=== PATIENT | female | born 1990 | race African-American/Black ===

== ENCOUNTER 2016-06-11 14:25 | Emergency (ER) | payer SELFPAY ==
[2016-06-11 14:25] VITALS: BMI 19.4
[2016-06-11 15:06] VITALS: BP 116/55; PULSE 96; TEMP 98.7
[2016-06-11] MEDS ORDERED: DIPHENHYDRAMINE 50 MG/ML VIAL IM ONE (15:40)
[2016-06-11] MEDS ORDERED: METOCLOPRAMIDE 10 MG/2 ML VIAL IM ONE (15:40)
[2016-06-11] MEDS ORDERED: OXYCODONE HCL 5 MG TABLET PO ONE (15:40)
--- NOTE | 2016-06-11 15:42 | EDPRACDOC ---
- General Information Chief Complaint: Headache Stated Complaint: MIGRAINE Time Seen by Provider: 06/11/16 15:36 Information Source: Patient Home Medications: Home Medications Vits W-Ca,Fe,FA(<1Mg) [] 1 tab PO DAILY 04/28/16 Allergies/Adverse Reactions: Allergies Allergy/AdvReac Type Severity Reaction Status Date / Time acetaminophen [From Vicodin] Allergy Nausea/Vomi Verified 06/11/16 15:06 ting hydrocodone [From Vicodin] Allergy Nausea/Vomi Verified 06/11/16 15:06 ting - History of Present Illness Onset: 2-3 DAYS HPI: PT PRESENTS TO ED WITH C/O TYPICAL MIGRAINE HEADACHE SYMPTOMS THAT SHE HAS HAD SEVERAL TIMES IN THE PAST. NO NEW SYMPTOMS. PT STATES SHE IS 15WKS PREG. NO VAGINAL BLEEDING OR DISCHARGE. Location: Reports: Frontal Pain Quality: Reports: Moderate, Like Previous Headaches Modifying Factors: improves with: Exposure to light Relevant History of: Reports: Known Headache disorder Associated Signs and Symptoms: Reports: Chronic Headaches, Nausea/Vomiting, Vision Changes (PHOTOPHOBIA) ED Past Medical History - History Reviewed Yes Nurses notes reviewed and agree except as marked Travel Outside of [place] in the Last 3 Months?: No - Patient Medical History Neurological History: Reports: Migraine GI/ History: Denies: Urinary Tract Infection Psychological History: Denies: Depression - Social Medical History Smoking Status: Light tobacco smoker (less than 5/day) Social History: Reports: Marijuana Use ETOH: None Substance Abuse: None Lives With: Other Lives In: Home EDM Review of Systems - Review of Systems ROS Negative Except as Marked: Yes All systems reviewed and were negative except as marked Constitutional: No Symptoms Reported. negative: Fever, Chills, Weakness, Fatigue, Loss of Appetite Eyes: Light Sensitive, Photophobia. negative: Blurred Vision, Double Vision, Discharge, Pain, Redness Ears: No Symptoms Reported. negative: Pain, Hearing Loss, Drainage, Ear Pulling Throat: No Symptoms Reported. negative: Pain, Swelling Nose: No Symptoms Reported. negative: Congestion, Bleeding, Discharge, Injection, Swelling, Deformity, Ecchymosis, Tender, Abrasion, Laceration Mouth: No Symptoms Reported. negative: Pain, Drooling Respiratory: No Symptoms Reported. negative: Cough, Brassy Cough, Barky Cough, Shortness of Breath, Wheezing, Hemoptysis Cardiovascular: No Symptoms Reported. negative: Chest Pain, Palpitations, Syncope, Edema, Orthopnea, PND, Skin Mottling, Cyanosis Gastrointestinal: Nausea, Vomiting. negative: Constipation, Diarrhea, Formula Intolerance, Melena, Pain Genitourinary: No Symptoms Reported. negative: Dysuria, Hematuria, Frequency, Discharge, Bleeding, Testicular Pain, Neurological: Headache. negative: Dizziness, Gait Difficulty, Numbness, Seizure , Speech Difficulty, Weakness Musculoskeletal: No Symptoms Reported. negative: Neck, Chestwall, Ribs, Back, Shoulder, Arm, Elbow, Forearm, Wrist, Hand, Pelvis, Hip, Femur, Knee, Leg, Ankle , Foot Integumentary: No Symptoms Reported. negative: Itching, Rash, Bruising, Wound Allergic/Immunologic: No Symptoms Reported. negative: Hives, Itching Hematologic: No Symptoms Reported. negative: Lymphadenopathy, Easy Bruising, Easy Bleeding Endocrine: No Symptoms Reported. negative: Weight Gain, Weight Loss Psychiatric: No Symptoms Reported. negative: Anxiety, Depression, Hallucinations, Insomnia, Suicidal - Physical Exam Constitutional: No apparent distress, Alert (Awake) Oriented to: Time, Person, Place Last recorded Vital Signs: Last Vital Signs Temp 98.7 F 06/11/16 15:03 Pulse 96 06/11/16 15:03 Resp 18 06/11/16 15:03 BP 116/55 L 06/11/16 15:03 Pulse Ox 100 06/11/16 15:03 Oxygen Pulse Oxygen Saturation 100 O2 Device Room Air Oxygen Flow Rate Fraction of Inspired Oxygen ( FIO2) - HEENT Head: Normal ( normocephalic) Eye Exam: Normal (PERRL, EOMI, Sclera white) Oropharynx: Normal (Pharynx:Moist without exudate,Gums-no swelling) Tympanic Membrane: Normal ENT EAC: Normal TMJ: Normal Nose: No Symptoms Reported (septum midline) Neck: Normal (FROM, trachea at midline) - Respiratory/Cardiovascular Respiratory: Normal - CTA (BBS clear to auscultation without adventitious sounds ) Cardiovascular: Normal (RRR without murmur, gallop or rub) - GI Auscultation: Normal (NABS) Palpation: Normal (Soft,No rebound or guarding, non distended) Tenderness: Non tender Cardona's Sign: Negative - Musculoskeletal Back: Normal (Non-Tender) Extremities: Normal (Normal tone, Pulses 2+ No cyanosis or edema, FROM) - Integumentary Skin: Normal, Warm, Dry Lymphatics: Normal (no adenopathy) - Neurologic Memory Impaired: Normal Motor Function: Normal (Normal tone, Pulses 2+ No cyanosis or edema, FROM) Cranial Nerve: Normal (CN II-X11 intact sensation, strength 5/5) Cerebellar: Normal Mood Description: Normal Perception: Normal - Differential Diagnosis Migraine, Acute Benign Cephalgia - Re-evaluation Re-evaluation 1 Re-evaluation Time: 16:23 (PT FEELING SOME BETTER. READY TO GO HOME. ) Decision Time to Discharge: 16:23 - Departure Disposition: Home Condition: Stable Final Diagnosis: Headache Instructions: Acute Headache (ED) Education/Counseling Given To: Patient Education/Counseling Given Regarding: Diagnosis, Treatment, Prognosis, Follow Up Referrals: None,No Provider [Primary Care Provider] - One Week Additional Instructions: TYLENOL FOR PAIN, FOLLOW UP WITH INVESTIGATION SPECIALIST FOR FURTHER EVALUATION OF OUR HEADACHES AND TREAMTENT DURING .
== END 2016-06-11 16:53 | disposition home or self-care (01) ==
LOC: ED 14:25 → EDMC 16:53
DX: R51 Headache (principal)
CPT/HCPCS: 96372; 99282; J1200; J2765; J3490